=== PATIENT | female | born 1980 | race Caucasian/White ===

== ENCOUNTER 2021-12-30 16:05 | Emergency (ER) | payer MEDICAID, OTHER ==
[2021-12-30 16:08] VITALS: BP 135/60
--- NOTE | 2021-12-30 16:37 | ED General ---
General Chief Complaint: Respiratory Problems Stated Complaint: SOB,FATIGUE Nursing Triage Note: PT VERY ANXIOUS AND CHECKED IN WANTING TO MAKE SURE SHE IS NOT DYING OF A HEART ATTACK. SHE WAS CONCERNED ABOUT HOW LONG THE VISIT WAS GOING TO TAKE. SHE DECIDED AFTER THE EKG SHE WAS LEAVING AMA. Source of Information: Patient History of Present Illness Date Seen by Provider: Dec 30, 2021 Time Seen by Provider: 16:09 Initial Comments 41-year-old female presenting with complaints of generalized swelling and being told that she had a heart murmur and heart failure at the [facility] on Tuesday. She states that she has been having symptoms for over a week but had procrastinated on being seen. She reports that when she went to the [facility] on Tuesday they advised her she needed to go to the emergency department right away. She did not go to any emergency department or be seen by anyone until today. She states that she had brought someone to be seen for an appointment and decided while she was here she was see about getting checked. She was concerned that maybe she was having a heart attack or that she was going to suddenly any moment. She denied having any chest pain, nausea, vomiting, headache, dizziness. She was very anxious and concerned about the generalized swelling. Timing/Duration: 1 Week (for over a week she has had increasing swelling to her legs and hands. ), Getting Worse Severity: Severe Associated Systoms: No Chest Pain, No Cough, No Diaphoresis, No Fever/Chills; Headaches; No Loss of Appetite, No Malaise, No Nausea/Vomiting, No Rash, No Seizure; Shortness of Air; No Syncope Allergies and Home Medications Allergies Coded Allergies: No Known Drug Allergies (Unverified , 12/30/21) Patient Home Medication List Home Medication List Reviewed: Yes Review of Systems Review of Systems Constitutional: No chills, No dizziness, No fever EENTM: no symptoms reported Respiratory: see HPI Cardiovascular: see HPI Gastrointestinal: No nausea, No vomiting Genitourinary: No dysuria, No frequency Musculoskeletal: no symptoms reported Skin: No rash Psychiatric/Neurological: Anxiety, Headache Hematologic/Lymphatic: Denies Blood Clots Past Uatbvoh-Qxdbis-Dcaktk Hx Patient Social History Tobacco Use?: Yes Tobacco type used: Cigarettes Smoking Status: Current Everyday Smoker Use of E-Cig and/or Vaping dev: No Substance use?: No Alcohol Use?: Yes Alcohol type: Hard Liquor Alcohol Frequency: Daily Pt feels they are or have been: No Past Medical History Surgery/Hospitalization HX: Gastric Bypass, Alcohol use Physical Exam Vital Signs Vital Signs - First Documented 12/30/21 16:08 Temp 36.4 Pulse 123 Resp 20 B/P (MAP) 135/60 (85) Pulse Ox 100 O2 Delivery Room Air Capillary Refill : Less Than 3 Seconds Height, Weight, BMI Height: '" Weight: lbs. oz. kg; BMI Method: General Appearance: Anxious HEENT: PERRL/EOMI, Pharynx Normal Neck: Full Range of Motion, Normal Inspection, Non Tender, Supple Respiratory: Chest Non Tender, Lungs Clear, Normal Breath Sounds, No Accessory Muscle Use, No Respiratory Distress Cardiovascular: Normal Peripheral Pulses, Systolic Murmur, Tachycardia Gastrointestinal: Normal Bowel Sounds, No Pulsatile Mass, Non Tender, Soft Rectal: Deferred Extremity: Normal Capillary Refill, Pedal Edema (2+ pitting edema to BLE to above her knees) Neurologic/Psychiatric: Alert, Oriented x3 Skin: Normal Color, Warm/Dry Progress/Results/Core Measures Suspected Sepsis SIRS Temperature: Pulse: 123 Respiratory Rate: 20 Blood Pressure 135 /60 Mean: 85 Results/Orders My Orders Orders - ELLY LOUIE MD Ekg Tracing (12/30/21 16:29) Vital Signs/I&O 12/30/21 16:08 Temp 36.4 Pulse 123 Resp 20 B/P (MAP) 135/60 (85) Pulse Ox 100 O2 Delivery Room Air Capillary Refill : Less Than 3 Seconds Blood Pressure Mean: 85 Progress Note : Progress Note Patient on labs electrocardiogram and will advise that the EKG did not show ST elevation and an acute heart attack to be rushed into the [facility] she said "okay thank you. I'd like to sign out now." Advised that she would have to sign out AGAINST MEDICAL ADVICE as I cannot force her to stay to do any further testing. However I also could not give her any answer for her swelling, shortness of breath, fast heart rate, and concerns she has had over the last week. She said "as long as I don't walk out the door and , I will see the clinic and get checked out." She has had symptoms for over a week and was seen last Tuesday in clinic in [place]. Despite my attempts to convince her to stay and have testing done here she continued decided to sign out AGAINST MEDICAL ADVICE and wanted to have testing done through the clinic. ECG Initial ECG Impression Date: Dec 30, 2021 Initial ECG Impression Time: 16:13 Initial ECG Rate: 126 Initial ECG Rhythm: S.Tach Initial ECG Comparisson: No Previous ECG Available Comment Sinus tachycardia with a heart rate of 126 bpm. Short [place] interval of 52 ms. Nonspecific T wave flattening. Prolonged QT interval of 375 ms with a QTc interval of [address] elevation. No prior tracing available for comparison. Departure Impression Primary Impression: Left against medical advice Additional Impressions: Dyspnea Qualified Codes: R06.02 - Shortness of breath Swelling Tachycardia Alcohol use Disposition: 07 AGAINST MEDICAL ADVICE Condition: Against Medical Advice Departure-Patient Inst. Referrals: NO,LOCAL PHYSICIAN (PCP/Family) Primary Care Physician ELLY LOUIE MD Dec 30, 2021 16:37
== END 2021-12-30 16:26 | disposition left against medical advice (07) ==
LOC: ER FS 16:07
DX: R06.00 Dyspnea, unspecified (principal); R60.9 Edema, unspecified; R00.0 Tachycardia, unspecified; F17.210 Nicotine dependence, cigarettes, uncomplicated; Z72.89 Other problems related to lifestyle
CPT/HCPCS: 93005